=== PATIENT | female | born 1960 | race African-American/Black ===

== ENCOUNTER 2018-11-29 19:29 | Emergency (ER) | payer MEDICARE ==
[2018-11-29] MEDS ORDERED: NORMAL SALINE 1000 ML 1,000 ML IV ONE (19:53)
[2018-11-29] MEDS ORDERED: DIPHENHYDRAMINE HCL 50 MG/ML VIAL IV ONE (19:54)
[2018-11-29] MEDS ORDERED: METOCLOPRAMIDE HCL INJ/PF 10 MG/2 ML SDV IV ONE (19:54)
--- NOTE | 2018-11-29 20:02 | ER Document Report ---
ED Medical Screen (RME) - General Chief Complaint: Headache, Worst Ever Stated Complaint: HEADACHE Time Seen by Provider: 11/29/18 19:49 Primary Care Provider: DIALLO CHRISTIE [Primary Care Provider] - Follow up as needed TRAVEL OUTSIDE OF THE [place] IN LAST 30 DAYS: No - HPI Notes: 11/29/18 20:00 Patient is a 58-year-old female that presents to the emergency department for chief complaint of headache and chest pain. Patient states she has had a headache that she describes as achy and severe from her forehead bilaterally to the top of her head. It was gradual in onset and has been constant for the last 3 days. She saw her PCP this morning and reportedly got a shot of Phenergan and another migraine medication. She states she did have some symptom medic improvement but after receiving the medication she started to have a chest pain and her PCP told her to come to the emergency room. She denies history of migraines or similar headaches in the past. She denies fevers and chills. She does states she has some pain in her neck which she describes is chronic from multiple cervical surgeries ROS: GENERAL: Denies fever of chills CV: chest pain PHYSICAL EXAMINATION: GENERAL: Well-appearing, well-nourished and in no acute distress. HEAD: Atraumatic, normocephalic. EYES: Pupils equal round extraocular movements intact, conjunctiva are normal. ENT: Nares patent NECK: Normal range of motion LUNGS: No respiratory distress Musculoskeletal: Normal range of motion NEUROLOGICAL: Normal speech, normal gait. PSYCH: Normal mood, normal affect. MDM: Patient seen and examined for rapid initial assessment. Vital signs reviewed. A comprehensive ED assessment and evaluation of the patient, analysis of test results and completion of the medical decision making process will be conducted by additional ED providers. - Related Data Allergies/Adverse Reactions: Sulfa (Sulfonamide Antibiotics) Allergy (Verified 11/29/18 19:37) skin peeling diphenhydramine [From Benadryl] Adverse Reaction (Verified 11/29/18 19:37) restless leg syndrome ketorolac [From Toradol] Adverse Reaction (Verified 11/29/18 19:37) restless leg syndrome tramadol Adverse Reaction (Verified 11/29/18 19:37) Past Medical History - Social History Chew tobacco use (# tins/day): No Frequency of alcohol use: None Drug Abuse: None Renal/ Medical History: Denies: Hx Peritoneal Dialysis Physical Exam - Vital signs Vitals: Temp Pulse Resp BP Pulse Ox 98.5 F 84 18 165/94 H 100 11/29/18 19:41 11/29/18 19:41 11/29/18 19:41 11/29/18 19:41 11/29/18 19:41 Course - Vital Signs Vital signs: Temp Pulse Resp BP Pulse Ox 98.5 F 84 18 165/94 H 100 11/29/18 19:41 11/29/18 19:41 11/29/18 19:41 11/29/18 19:41 11/29/18 19:41 Doctor's Discharge - Discharge Referrals: LOCALMD,NO [Primary Care Provider] - Follow up as needed
[2018-11-29] MEDS ORDERED: METOCLOPRAMIDE HCL INJ/PF 10 MG/2 ML SDV ONE (20:30)
[2018-11-29] MEDS ORDERED: DIPHENHYDRAMINE HCL 50 MG/ML VIAL ONE (20:30)
--- NOTE | 2018-11-29 20:35 | RADIOLOGY REPORT (SQ) ---
EXAM DESCRIPTION: XR CHEST 1 VIEW COMPLETED DATE/TME: 11/29/2018 19:54 CLINICAL HISTORY: 58 years, Female, chest pain Findings: Heart is not enlarged. No consolidation or pleural effusion. No pulmonary edema or pneumothorax. IMPRESSION: No acute disease.
--- NOTE | 2018-11-29 20:37 | RADIOLOGY REPORT (SQ) ---
EXAM DESCRIPTION: CT HEAD WITHOUT IV CONTRAST COMPLETED DATE/TME: 11/29/2018 00:00 CLINICAL HISTORY: 58 years, Female, LE This exam was performed according to our departmental dose-optimization program which includes automated exposure control, adjustment of the mA and/or kVp according to patient size and/or use of iterative reconstruction technique where applicable. Findings: No acute intracranial hemorrhage, mass effect or midline shift. No extra-axial fluid collections. Ventricles and subarachnoid spaces are preserved. Moore-white matter differentiation is preserved. Visualized paranasal sinuses and the mastoid air cells are clear. The skull is intact. IMPRESSION: No acute intracranial hemorrhage.
[2018-11-29 20:44] LABS: ABSOLUTE EOSINOPHILS # (AUTO) 0.1 10^3/uL (0.0-0.6); ABSOLUTE LYMPHOCYTES (AUTO) 2.6 10^3/uL (0.5-4.7); ABSOLUTE MONOCYTES (AUTO) 0.5 10^3/uL (0.1-1.4); BASOPHILS % (AUTO) 0.9 % (0-2); EOSINOPHILS % (AUTO) 2.8 % (0-6); HEMATOCRIT 32.1 % (36.0-47.0); HEMOGLOBIN 10.7 g/dL (12.0-15.5); LYMPHOCYTES % (AUTO) 49.4 % (13-45); MEAN CORPUSCULAR HEMOGLOBIN 27.6 pg (27.0-33.4); MEAN CORPUSCULAR HGB CONC 33.4 g/dL (32.0-36.0); MEAN CORPUSCULAR VOLUME 83 fl (80-97); MONOCYTES % (AUTO) 9.1 % (3-13); PLATELET COUNT 228 10^3/uL (150-450); RED BLOOD COUNT 3.89 10^6/uL (3.72-5.28); RED CELL DISTRIBUTION WIDTH 16.1 % (11.5-14.0); SEGMENTED NEUTROPHILS % (AUTO) 37.8 % (42-78); TOTAL CELLS COUNTED % (AUTO) 100 %; WHITE BLOOD COUNT 5.3 10^3/uL (4.0-10.5)
[2018-11-29 21:13] LABS: ANION GAP 7 (5-19); BLOOD UREA NITROGEN 14 mg/dL (7-20); CALCIUM 9.3 mg/dL (8.4-10.2); CARBON DIOXIDE 30 mmol/L (22-30); CHLORIDE 101 mmol/L (98-107); GLUCOSE 89 mg/dL (75-110); POTASSIUM 3.9 mmol/L (3.6-5.0)
[2018-11-29] MEDS ORDERED: HALOPERIDOL LACTATE INJ 5 MG/1 ML VIAL IV ONE (21:22)
[2018-11-29] MEDS ORDERED: DEXAMETHASONE SOD PHOS INJ 10 MG/1 ML VIAL IV ONE (21:22)
--- NOTE | 2018-11-29 21:38 | ER Document Report ---
ED General - General Chief Complaint: Headache, Worst Ever Stated Complaint: HEADACHE Time Seen by Provider: 11/29/18 19:49 Primary Care Provider: DIALLO CHRISTIE [NO LOCAL MD] - Follow up as needed Notes: Patient is a 58-year-old female with a past medical history of chronic pain, hypertension, presents complaining of a headache for the past 3-4 days. Patient states that the headache started gradually, has been progressively worsening since onset. Has had a dull, throbbing, constant, global headache. Headache is somewhat worsened by lights. Has tried [id number] medications, and has seen her primary care physician and had a intramuscular injection of Phenergan which she also reports gave her chest pain. Apparently after getting chest pain after receiving intramuscular Phenergan she was instructed to come to the emergency department. Chest pain was described as a dull, global sensation has completely resolved spontaneously. Chest pain was greater than 6 hours ago. No history of coronary artery disease. Denies pleuritic pain. Denies any history of DVT or pulmonary embolus. No shortness of breath. Has had nausea but no vomiting. Has a history of headaches but denies headache similar to this in the past. Denies any head trauma. TRAVEL OUTSIDE OF THE [place] IN LAST 30 DAYS: No - Related Data Allergies/Adverse Reactions: Sulfa (Sulfonamide Antibiotics) Allergy (Verified 11/29/18 19:37) skin peeling diphenhydramine [From Benadryl] Adverse Reaction (Verified 11/29/18 19:37) restless leg syndrome ketorolac [From Toradol] Adverse Reaction (Verified 11/29/18 19:37) restless leg syndrome tramadol Adverse Reaction (Verified 11/29/18 19:37) Past Medical History - General Information source: Patient - Social History Smoking Status: Never Smoker Chew tobacco use (# tins/day): No Frequency of alcohol use: None Drug Abuse: None Lives with: Spouse/Significant other Family History: Reviewed & Not Pertinent Patient has suicidal ideation: No Patient has homicidal ideation: No Renal/ Medical History: Denies: Hx Peritoneal Dialysis Review of Systems - Review of Systems Notes: Constitutional: Negative for fever. HENT: Negative for sore throat. Eyes: Negative for visual changes. Cardiovascular: Negative for chest pain. Respiratory: Negative for shortness of breath. Gastrointestinal: Negative for abdominal pain, positive for nausea Genitourinary: Negative for dysuria. Musculoskeletal: Negative for back pain. Skin: Negative for rash. Neurological: positive for headache 10 point ROS negative except as marked above and in HPI. Physical Exam - Vital signs Vitals: Temp Pulse Resp BP Pulse Ox 98.5 F 84 18 165/94 H 100 11/29/18 19:41 11/29/18 19:41 11/29/18 19:41 11/29/18 19:41 11/29/18 19:41 Interpretation: Hypertensive Notes: PHYSICAL EXAMINATION: GENERAL: Well-appearing, well-nourished and in no acute distress. HEAD: Atraumatic, normocephalic. EYES: Pupils equal round and reactive to light, extraocular movements intact, sclera anicteric, conjunctiva are normal. ENT: nares patent, oropharynx clear without exudates. Moist mucous membranes. NECK: Normal range of motion, supple without lymphadenopathy LUNGS: Breath sounds clear to auscultation bilaterally and equal. No wheezes rales or rhonchi. HEART: Regular rate and rhythm without murmurs ABDOMEN: Soft, nontender, normoactive bowel sounds. No guarding, no rebound. No masses appreciated. EXTREMITIES: Normal range of motion, no pitting or edema. No cyanosis. NEUROLOGICAL: Face symmetric. Tongue protrudes midline. Extraocular motions intact. Pupils are 2 mm and equally reactive. Normal speech, normal gait. 5 out of 5 strength in both the distal and proximal upper and lower extremities bilaterally. Sensation is grossly intact throughout. Finger to nose testing normal. Pronator drift normal. PSYCH: Normal mood, normal affect. SKIN: Warm, Dry, normal turgor, no rashes or lesions noted. Course - Re-evaluation Re-evalutation: 11/29/18 21:34 Patient presents with 3 days of progressively worsening headache. Headache was gradual in onset has been progressively worsening since that time. Clinical history is not consistent with subarachnoid hemorrhage. CT of the head without contrast obtained in triage noted to be unremarkable. I do have some concern for possible dural venous sinus thrombosis given the characterization of the pain and some atypical features that are not entirely consistent with a migrainous type headache. CT venogram will be obtained as MRI V is not available at this time. Patient has had some improvement of her headache after receiving metoclopramide and Benadryl but not complete relief. We will use haloperidol and dexamethasone as rescue agents. In regards to the patient's chest discomfort: Low clinical suspicion for ACS given clinical history, exam, EKG without ST elevations or depressions, and negative initial troponin. HEART score less than or equal to 3. PE also seems unlikely given clinical history, absence of tachycardia or dyspnea. Wells score is 0. Patient states that this discomfort occurred after receiving intramuscular injections of medications prior to arrival has since resolved. No widened mediastinum. Aortic dissection also seems unlikely given history, symmetric pulses, CXR, and vitals. 11/30/18 00:02 CT head with contrast without evidence of dural venous sinus thrombosis. Patient's headache is much improved. Remains without any neurologic deficits. Of note, the patient has been found on [place] controlled substance database to be taking oxycodone 24 times daily as well as methadone 10 mg daily which she has not disclosed to me at any point despite being asked about chronic narcotic use. At this time will discharge with return precautions and follow-up recom mendations. Verbal discharge instructions given a the bedside and opportunity for questions given. Medication warnings reviewed. Patient is in agreement with this plan and has verbalized understanding of return precautions and the need for primary care follow-up in the next 24-72 hours. - Vital Signs Vital signs: Temp Pulse Resp BP Pulse Ox 98.3 F 143 H 14 151/90 H 97 11/30/18 00:18 11/29/18 19:50 11/30/18 00:18 11/30/18 00:18 11/30/18 00:18 - Laboratory Result Diagrams: 11/29/18 20:25 11/29/18 20:25 Laboratory results interpreted by me: 11/29/18 20:25 Hgb 10.7 L Hct 32.1 L RDW 16.1 H Seg Neutrophils % 37.8 L Lymphocytes % 49.4 H - Diagnostic Test Radiology reviewed: Image reviewed, Reports reviewed Radiology results interpreted by me: 11/29/18 21:37 CT head: No acute intracranial bleed or mass Chest x-ray: No acute infiltrate - EKG Interpretation by Me Additional EKG results interpreted by me: 11/29/18 21:38 Sinus rhythm, rate 79. No ST elevations or depressions. QTC is 455. Discharge - Discharge Clinical Impression: Chest discomfort Headache Qualifiers: Headache type: unspecified Headache chronicity pattern: acute headache Intractability: not intractable Qualified Code(s): R51 - Headache Nausea and vomiting Qualifiers: Vomiting type: unspecified Vomiting Intractability: non-intractable Qualified Code(s): R11.2 - Nausea with vomiting, unspecified Condition: Good Disposition: HOME, SELF-CARE Additional Instructions: You have been seen in the Emergency Department (ED) for a headache. Your CT scans and blood work are all unremarkable. In regards to your chest discomfort that workup is likewise normal. As we have discussed, please follow up with your primary care doctor as soon as possible regarding today's ED visit and your headache symptoms. Call your doctor or return to the ED if you have a worsening headache, sudden and severe headache, confusion, slurred speech, facial droop, weakness or numbness in any arm or leg, extreme fatigue, or other symptoms that concern you. Referrals: LOCALMD,NO [NO LOCAL MD] - Follow up as needed
--- NOTE | 2018-11-29 23:34 | RADIOLOGY REPORT (SQ) ---
EXAM DESCRIPTION: CT HEAD WITHOUT THEN WITH IV CONTRAST COMPLETED DATE/TME: 11/29/2018 21:22 CLINICAL HISTORY: 58 years, Female, eval dural venous thrombosis creat 0.95 COMPARISON: Prior CT brain from today's date TECHNIQUE: 503 Images stored on PACS. All CT scanners at this facility use dose modulation, iterative reconstruction, and/or weight based dosing when appropriate to reduce radiation dose to as low as reasonably achievable (ALARA). [facility]: Dose Right [facility]: CareDose [facility]: Dose Right [facility]: Teradose 4D [facility]: [employer] LIMITATIONS: None. FINDINGS: The globes are intact. Paranasal sinuses and mastoid air cells well aerated. Mild motion artifact. No displaced or depressed skull fracture. No intra or extra-axial hemorrhage. CT is limited for evaluation of acute infarct. No CT evidence for large or territorial acute infarct. No mass or midline shift IMPRESSION: Unremarkable unenhanced CT brain TECHNICAL DOCUMENTATION: Quality ID # [id number]: Final reports with documentation of one or more dose reduction techniques (e.g., Automated exposure control, adjustment of the mA and/or kV according to patient size, use of iterative reconstruction technique) copyright 2010 [employer]- All Rights Reserved
--- NOTE | 2018-11-29 23:58 | EKG REPORT ---
SEVERITY:- ABNORMAL ECG - SINUS RHYTHM CONSIDER LEFT VENTRICULAR HYPERTROPHY : Confirmed by: Chanel Thorpe 29-Nov-2018 23:58:07
[2018-11-30 00:21] VITALS: BP 151/90
== END 2018-11-30 00:21 | disposition home or self-care (01) ==
LOC: ER 19:29
DX: R51 Headache (principal); R11.2 Nausea with vomiting, unspecified; R07.9 Chest pain, unspecified; G89.29 Other chronic pain; I10 Essential (primary) hypertension; Z88.2 Allergy status to sulfonamides; Z88.6 Allergy status to analgesic agent
CPT/HCPCS: 93005; 99284; 96361; 96374; 96375; 36415; 85025; 80048; 84484; 71045; 70450; 70470; 93010; J1630; J2765; J7030; J1100